=== PATIENT | male | born 1980 | race African-American/Black ===

== ENCOUNTER 2017-02-17 11:26 | Emergency (ER) | payer MEDICAID ==
[~2017-02-17] VITALS: Ht 175.3 cm; Wt 76.0 kg
[~2017-02-17 11:26] MED LIST: DICL50TA2 PO; METH750T2 PO
[2017-02-17 11:28] VITALS: BP 142/88; PULSE 75; RESP 16; TEMP 98.3; O2SAT 98
== END 2017-02-17 14:20 | disposition left against medical advice (07) ==
LOC: NED 11:26
DX: R10.9 Unspecified abdominal pain (principal)
CPT/HCPCS: 99281